=== PATIENT | male | born 1990 | race Hispanic/Latino ===

== ENCOUNTER 2018-05-06 16:03 | Emergency (ER) | payer OTHER ==
[2018-05-06] MEDS ORDERED: NACL 0.9% 1000 ML 1,000 ML IV ONE (16:45)
[2018-05-06 17:41] LABS: Basophils % (Auto) 0.3 % (0.0-1.8); Eosinophils # (Auto) 0.1 K/mm3 (0.0-0.4); Eosinophils % (Auto) 0.7 % (0.0-4.3); Hematocrit 46.4 % (35.5-45.6); Hemoglobin 16.1 gm/dl (11.8-15.2); Lymphocytes # (Auto) 2.2 K/mm3 (1.2-5.4); Lymphocytes % (Auto) 22.1 % (13.4-35.0); Mean Corpuscular HGB Conc 35 % (32-34); Mean Corpuscular Hemoglobin 31 pg (28-32); Mean Corpuscular Volume 90 fl (84-94); Monocytes # (Auto) 0.6 K/mm3 (0.0-0.8); Monocytes % (Auto) 5.7 % (0.0-7.3); Platelet Count 258 K/mm3 (140-440); Red Blood Count 5.16 M/mm3 (3.65-5.03); Red Cell Distribution Width 12.5 % (13.2-15.2)
[2018-05-06 17:51] LABS: Alanine Aminotransferase 22 units/L (7-56); Albumin 4.5 g/dL (3.9-5); BUN/Creatinine Ratio 14; Blood Urea Nitrogen 10 mg/dL (9-20); Calcium 9.9 mg/dL (8.4-10.2); Hemolysis Index 4
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
[2018-05-06] MEDS ORDERED: ZOFRAN IV ONE (19:51)
--- NOTE | 2018-05-06 20:36 | Cat Scan Report ---
FINAL REPORT EXAM: CT HEAD/BRAIN WO CON HISTORY: head injury 2 days ago with nausea and dixzziness TECHNIQUE: CT of the head without contrast PRIORS: None. FINDINGS: There is hypodensity within the inferior aspect of both frontal lobes along with patchy areas rounded increased densities suspicious for hemorrhagic contusions. No extra-axial hemorrhage identified. No evidence for midline shift or mass effect. No additional acute parenchymal abnormalities are identified. Bony calvarium is intact. Visualized portions of the mastoids and paranasal sinuses are unremarkable. No intraorbital abnormality identified. IMPRESSION: Most consistent with bilateral frontal lobe hemorrhagic contusions with small areas of parenchymal hemorrhage identified. Followup MRI suggested for further evaluation
[2018-05-06 21:38] VITALS: BP 155/95
[2018-05-06 21:39] LABS: INR 0.96 (0.87-1.13)
[2018-05-06 21:40] LABS: Partial Thromboplastin Time 30.7 Sec. (24.2-36.6)
[2018-05-06 21:44] LABS: Bacteria,Urine 1+ /HPF (Negative); Bilirubin,Urine NEG (Negative); Blood,Urine NEG (Negative); Color,Urine Amber (Yellow); Mucus,Urine 3+ /HPF; Sperm,Urine FEW /HPF (NP)
== END 2018-05-06 21:57 | disposition other institution (70) ==
LOC: ED 16:03
DX: S06.369A Traumatic hemorrhage of cerebrum, unspecified, with loss of consciousness of unspecified duration, initial encounter (principal); F17.200 Nicotine dependence, unspecified, uncomplicated; W18.09XA Striking against other object with subsequent fall, initial encounter; Y93.01 Activity, walking, marching and hiking; Y99.8 Other external cause status; Y92.89 Other specified places as the place of occurrence of the external cause
CPT/HCPCS: 36415; 70450; 80053; 81001; 85025; 85610; 85730; 86850; 86900; 86901; 96361; 96365; 99285; J2405; J7030